=== PATIENT | male | born 1950 | race Caucasian/White ===

== ENCOUNTER → 2018-05-09 | Outpatient (CLI) | payer MEDICARE ==
[~2018-05-09] MED LIST: ARIP15TA3 PO; ASPI-496 PO; ATOR20TA PO; BUPR150T73 PO; CIPR500T87 PO; HYDR-3240 PO; METH1TAB41 PO; REGADENOSON 0.4 MG/5 ML SYRINGE ONE; SERT100T PO; TAMS-11 PO
== END | disposition home or self-care (01) ==
LOC: CFH 06:59
PROVIDERS: ATTEND Internal Medicine Cardiovascular Disease
DX: I08.3 Combined rheumatic disorders of mitral, aortic and tricuspid valves (principal); E78.5 Hyperlipidemia, unspecified
CPT/HCPCS: 78452; 93017; 93306; A9502; J2785

== ENCOUNTER 2018-08-05 22:53 | Inpatient (IN) | payer MEDICARE ==
[~2018-08-05] VITALS: Ht 188 cm; Wt 85.9 kg
[~2018-08-05 22:53] MED LIST changes: -REGADENOSON 0.4 MG/5 ML SYRINGE ONE
--- NOTE | 2018-08-05 23:01 | NUR ---
Pt presents to ed c/o n/v since 1600 this pm. Admits to eating marijuana edible approximately 2 hours prior. Denies any abd pain. Denies gi/gu symptoms. Monitoring applied. Vss. Call light within reach. Spouse at bedside.
[2018-08-05] MEDS ORDERED: ONDANSETRON 2MG/ML, 2ML ONE (23:17)
[2018-08-05] MEDS ORDERED: MORPHINE SULFATE 4 MG/ML, 1ML ONE (23:17)
[2018-08-05] MEDS ORDERED: MORPHINE SULFATE 4 MG/ML, 1ML IVPush PRN (23:30)
[2018-08-05] MEDS ORDERED: ONDANSETRON 2MG/ML, 2ML IVPush ONE (23:30)
[2018-08-05 23:41] LABS: BASOPHILS # (AUTO) 0.02 x10^3/uL (0-0.1); BASOPHILS % (AUTO) 0 % (0-1); EOSINOPHILS # (AUTO) 0.02 x10^3/uL (0-0.4); EOSINOPHILS % (AUTO) 0 % (1-7); LYMPHOCYTES # (AUTO) 1.07 x10^3/uL (1-3.4); LYMPHOCYTES % (AUTO) 13 % (22-44); MD NO; MEAN CORPUSCULAR HEMOGLOBIN 30.1 pg (27.5-34.5); MEAN CORPUSCULAR VOLUME 91.2 fL (81-97); MEAN PLATELET VOLUME 7.8 fL (7.4-10.4); MONOCYTES # (AUTO) 0.24 x10^3/uL (0.2-0.8); MONOCYTES % (AUTO) 3 % (2-9); NEUTROPHILS # (AUTO) 7.02 x10^3/uL (1.8-6.8); NEUTROPHILS % (AUTO) 84 % (42-75); PLATELET COUNT 209 x10^3/uL (130-400); RED BLOOD COUNT 5.13 x10^6/uL (4.38-5.82); RED CELL DISTRIBUTION WIDTH 13.3 % (9.4-14.8)
[2018-08-05 23:52] LABS: ALANINE AMINOTRANSFERASE 27 U/L (12-78); ALBUMIN 3.7 g/dL (3.4-5.0); ANION GAP 7 mmol/L (5-15); CALCIUM 8.5 mg/dL (8.5-10.1); CHLORIDE 111 mmol/L (98-107)
[2018-08-05 23:57] LABS: ALKALINE PHOSPHATASE 95 U/L (45-117); TOTAL PROTEIN 6.9 g/dL (6.4-8.2); TROPONIN I < 0.015 ng/mL (0.000-0.045)
--- NOTE | 2018-08-06 00:36 | NUR ---
Pt to ct.
[2018-08-06] MEDS ORDERED: OMNIPAQUE 350 MG/ML, 100ML BOTTLE ONE (00:43)
--- NOTE | 2018-08-06 01:44 | NUR ---
All results back. Pt up for recheck.
--- NOTE | 2018-08-06 01:49 | NUR ---
Pt sleeping comfortably on gurney. Rr even and unlabored. Vss.
[2018-08-06] MEDS ORDERED: PROMETHAZINE 25 MG/ML, 1ML ONE (02:14)
--- NOTE | 2018-08-06 02:23 | NUR ---
This rn to medicate pt and medicated per apr. Pt not able to ambulate w/ steady gait at this time and still dry heaving at this time.
[2018-08-06] MEDS ORDERED: PROMETHAZINE 25 MG/ML, 1ML IM ONE (02:30)
--- NOTE | 2018-08-06 03:22 | NUR ---
pt reports that his nausea is resolving however his restless leg has increased dramatically per pt and . Pt obvious discomfort, takes Requip and low dose Abilify for this problem
--- NOTE | 2018-08-06 03:45 | NUR ---
states that pt was gagging just prior to entrance to room, pt is interested in attempting po fluids at this time. Pt is shaky, states that this is not parkinsons, is usual for pt however it is worse.
--- NOTE | 2018-08-06 03:46 | NUR ---
MD notified of the current events, will go back and talk with pt and
--- NOTE | 2018-08-06 04:02 | NUR ---
Pt very unsteady, wiofe very concerned that pt will fall if she takes him home and notes that he contiues to gag. Ask pt and what they would like done, admission as pt is not improving, MD aware that they have chosen admission
--- NOTE | 2018-08-06 04:28 | NUR ---
pt resting on gurney, family at bedside, denies needs at this time, pt unable to provided urine sample at this time, monitor in place, call light within reach. awaiting room for admit
[2018-08-06] MEDS ORDERED: ROPI1TAB2 PO (05:41)
[2018-08-06] MEDS ORDERED: FINA5TAB4 PO (05:41)
[2018-08-06] MEDS ORDERED: hydrALAzine 20 MG/ML, 1ML IVPush PRN (06:30)
[2018-08-06] MEDS ORDERED: DOCUSATE 100 MG CAPSULE PO PRN (06:30)
[2018-08-06] MEDS ORDERED: PROMETHAZINE 25 MG/ML, 1ML IM PRN (06:30)
[2018-08-06] MEDS ORDERED: ACETAMINOPHEN 325 MG TABLET PO PRN (06:30)
[2018-08-06] MEDS ORDERED: BISACODYL 10 MG SUPP PR PRN (06:30)
[2018-08-06] MEDS ORDERED: morphine SULFATE 10 MG/ML, 1ML IVPush PRN (06:30)
[2018-08-06] MEDS ORDERED: OXYcodone IR 5MG TABLET PO PRN (06:30)
[2018-08-06] MEDS ORDERED: POLYETHYLENE GLYCOL 17 GM PACKET PO PRN (06:30)
[2018-08-06] MEDS ORDERED: ONDANSETRON 2MG/ML, 2ML IVPush PRN (06:30)
[2018-08-06] MEDS: SODIUM CHLORIDE 0.9% 1,000 ML IV SCH ×2 (06:44→20:49)
[2018-08-06 07:15] VITALS: BP 155/79
[2018-08-06 07:24] LABS: MICROSCOPIC AUTO
[2018-08-06 07:26] LABS: CULTURE INDICATED? NO
[2018-08-06] MEDS: HEPARIN 5,000 UNITS/ML, 1ML SQ SCH ×2 (08:00→16:00)
[2018-08-06 08:44] LABS: FREE T4 (FREE THYROXINE) 1.12 ng/dL (0.76-1.46); THYROID STIMULATING HORMONE 0.284 mIU/L (0.358-3.740)
[2018-08-06] MEDS ORDERED: PANTOPRAZOLE 40 MG IV IVPush SCH (09:00)
[2018-08-06] MEDS: TAMSULOSIN 0.4 MG CAP.ER.24H PO SCH (09:10)
[2018-08-06] MEDS: SERTRALINE 100MG TABLET PO SCH (09:10)
[2018-08-06] MEDS: ROPINIROLE 1MG TABLET PO SCH (09:10)
[2018-08-06] MEDS: FINASTERIDE 5 MG TABLET PO SCH (09:10)
[2018-08-06] MEDS: BUPROPION SR 150 MG TABLET PO SCH (09:10)
[2018-08-06 10:01] LABS: HEMOGLOBIN A1C 5.6 % (4.2-6.3)
[2018-08-06] MEDS: ONDANSETRON ODT 4 MG PO PRN ×2 (10:36→21:02)
[2018-08-06 11:50] LABS: BASOPHILS % (AUTO) 0 % (0-1); EOSINOPHILS % (AUTO) 0 % (1-7); LYMPHOCYTES # (AUTO) 1.06 x10^3/uL (1-3.4); LYMPHOCYTES % (AUTO) 9 % (22-44); MD NO; MEAN CORPUSCULAR HGB CONC 32.9 g/dL (33.2-36.2); MEAN CORPUSCULAR VOLUME 91.1 fL (81-97); MEAN PLATELET VOLUME 7.9 fL (7.4-10.4); MONOCYTES # (AUTO) 0.63 x10^3/uL (0.2-0.8); MONOCYTES % (AUTO) 6 % (2-9); NEUTROPHILS # (AUTO) 9.67 x10^3/uL (1.8-6.8); NEUTROPHILS % (AUTO) 85 % (42-75); PLATELET COUNT 225 x10^3/uL (130-400); RED BLOOD COUNT 4.98 x10^6/uL (4.38-5.82); RED CELL DISTRIBUTION WIDTH 13.4 % (9.4-14.8)
[2018-08-06 11:57] LABS: ALANINE AMINOTRANSFERASE 27 U/L (12-78); ALBUMIN 3.5 g/dL (3.4-5.0); ANION GAP 6 mmol/L (5-15); CALCIUM 8.3 mg/dL (8.5-10.1); CHLORIDE 112 mmol/L (98-107); CREATININE 1.04 mg/dL (0.7-1.3)
[2018-08-06 11:59] LABS: ALKALINE PHOSPHATASE 95 U/L (45-117); BILIRUBIN,TOTAL 1.3 mg/dL (0.2-1.0); TOTAL PROTEIN 6.6 g/dL (6.4-8.2)
[2018-08-06 14:00] VITALS: BP 131/71
[2018-08-06 18:01] LABS: CHOL/HDL RATIO 4.7; LDL/HDL RATIO 3.1 (0.5-3.0)
[2018-08-06] MEDS ORDERED: GADOBUTROL 10 MMOL/10 ML PFS ONE (18:04)
[2018-08-06 18:15] LABS: HEMOGLOBIN A1C 5.7 % (4.2-6.3)
[2018-08-06 20:07] VITALS: BP 127/73
[2018-08-06] MEDS: ATORVASTATIN 20 MG TABLET PO SCH (20:49)
[2018-08-06 23:53] VITALS: BP 135/78
[2018-08-07] MEDS: HEPARIN 5,000 UNITS/ML, 1ML SQ SCH ×4 (00:06→23:45)
[2018-08-07 02:25] VITALS: BP 123/76
[2018-08-07] MEDS: SODIUM CHLORIDE 0.9% 1,000 ML IV SCH (03:43)
[2018-08-07 04:25] VITALS: BP 127/75
[2018-08-07 04:32] LABS: BASOPHILS # (AUTO) 0.02 x10^3/uL (0-0.1); BASOPHILS % (AUTO) 0 % (0-1); EOSINOPHILS # (AUTO) 0.07 x10^3/uL (0-0.4); EOSINOPHILS % (AUTO) 1 % (1-7); LYMPHOCYTES % (AUTO) 22 % (22-44); MD NO; MEAN CORPUSCULAR HEMOGLOBIN 29.9 pg (27.5-34.5); MEAN CORPUSCULAR HGB CONC 32.4 g/dL (33.2-36.2); MEAN CORPUSCULAR VOLUME 92.2 fL (81-97); MEAN PLATELET VOLUME 8.2 fL (7.4-10.4); MONOCYTES # (AUTO) 0.55 x10^3/uL (0.2-0.8); MONOCYTES % (AUTO) 7 % (2-9); NEUTROPHILS # (AUTO) 5.33 x10^3/uL (1.8-6.8); NEUTROPHILS % (AUTO) 70 % (42-75); PLATELET COUNT 204 x10^3/uL (130-400); RED BLOOD COUNT 4.73 x10^6/uL (4.38-5.82); RED CELL DISTRIBUTION WIDTH 13.7 % (9.4-14.8)
[2018-08-07 04:41] LABS: CHLORIDE 111 mmol/L (98-107)
[2018-08-07 04:49] LABS: ALANINE AMINOTRANSFERASE 24 U/L (12-78); ALBUMIN 3.4 g/dL (3.4-5.0); ALKALINE PHOSPHATASE 79 U/L (45-117); ANION GAP 4 mmol/L (5-15); BILIRUBIN,TOTAL 1.2 mg/dL (0.2-1.0); CHOL/HDL RATIO 5.3; CHOLESTEROL, TOTAL 180 mg/dL (140-239); CREATININE 1.04 mg/dL (0.7-1.3); HDL CHOL % 19 % (26-37); HDL CHOLESTEROL (DIRECT) 34 mg/dL (40-60); LDL CHOLESTEROL,CALCULATED 117 mg/dL (54-169); LDL/HDL RATIO 3.4 (0.5-3.0); TOTAL PROTEIN 5.9 g/dL (6.4-8.2); TRIGLYCERIDES 146 mg/dL (50-200); VLDL CHOLESTEROL 29 mg/dL (0-25)
[2018-08-07 08:00] VITALS: BP 147/79
[2018-08-07] MEDS: BUPROPION SR 150 MG TABLET PO SCH (09:53)
[2018-08-07] MEDS: FINASTERIDE 5 MG TABLET PO SCH (09:53)
[2018-08-07] MEDS: PANTOPROZOLE 40MG TABLET PO SCH (09:53)
[2018-08-07] MEDS: SERTRALINE 100MG TABLET PO SCH (09:53)
[2018-08-07] MEDS: ARIPIPRAZOLE 10 MG TABLET PO SCH (09:54)
[2018-08-07] MEDS: ROPINIROLE 1MG TABLET PO SCH (09:54)
[2018-08-07] MEDS: TAMSULOSIN 0.4 MG CAP.ER.24H PO SCH (09:54)
[2018-08-07 15:59] VITALS: BP 139/87
[2018-08-07 20:11] VITALS: BP 136/82
[2018-08-07] MEDS: ATORVASTATIN 20 MG TABLET PO SCH (20:22)
[2018-08-08 00:17] VITALS: BP 119/69
[2018-08-08] MEDS: PANTOPROZOLE 40MG TABLET PO SCH (06:02)
[2018-08-08 06:51] VITALS: BP 152/76
[2018-08-08] MEDS: ROPINIROLE 1MG TABLET PO SCH (08:07)
[2018-08-08] MEDS: ARIPIPRAZOLE 10 MG TABLET PO SCH (08:08)
[2018-08-08] MEDS: BUPROPION SR 150 MG TABLET PO SCH (08:08)
[2018-08-08] MEDS: HEPARIN 5,000 UNITS/ML, 1ML SQ SCH ×3 (08:08→23:13)
[2018-08-08] MEDS: TAMSULOSIN 0.4 MG CAP.ER.24H PO SCH (08:08)
[2018-08-08] MEDS: FINASTERIDE 5 MG TABLET PO SCH (08:08)
[2018-08-08] MEDS: SERTRALINE 100MG TABLET PO SCH (08:08)
[2018-08-08] MEDS ORDERED: IRON SUCROSE COMPLEX 100MG/5ML IV ONE (09:30)
[2018-08-08 12:10] VITALS: BP 138/81
[2018-08-08 20:00] VITALS: BP 132/80
[2018-08-08] MEDS: ATORVASTATIN 20 MG TABLET PO SCH (20:31)
[2018-08-09 00:42] VITALS: BP 134/71
[2018-08-09 05:14] LABS: BASOPHILS # (AUTO) 0.03 x10^3/uL (0-0.1); BASOPHILS % (AUTO) 0 % (0-1); EOSINOPHILS # (AUTO) 0.23 x10^3/uL (0-0.4); EOSINOPHILS % (AUTO) 3 % (1-7); LYMPHOCYTES # (AUTO) 1.87 x10^3/uL (1-3.4); LYMPHOCYTES % (AUTO) 23 % (22-44); MD NO; MEAN CORPUSCULAR HEMOGLOBIN 29.8 pg (27.5-34.5); MEAN CORPUSCULAR HGB CONC 32.8 g/dL (33.2-36.2); MEAN CORPUSCULAR VOLUME 90.9 fL (81-97); MEAN PLATELET VOLUME 7.7 fL (7.4-10.4); MONOCYTES # (AUTO) 0.52 x10^3/uL (0.2-0.8); MONOCYTES % (AUTO) 7 % (2-9); NEUTROPHILS # (AUTO) 5.36 x10^3/uL (1.8-6.8); NEUTROPHILS % (AUTO) 67 % (42-75); PLATELET COUNT 186 x10^3/uL (130-400); RED BLOOD COUNT 4.78 x10^6/uL (4.38-5.82); RED CELL DISTRIBUTION WIDTH 13.4 % (9.4-14.8)
[2018-08-09 05:25] LABS: ALBUMIN 3.1 g/dL (3.4-5.0); ANION GAP 7 mmol/L (5-15); CALCIUM 7.9 mg/dL (8.5-10.1); CHLORIDE 111 mmol/L (98-107)
[2018-08-09 05:30] LABS: ALANINE AMINOTRANSFERASE 31 U/L (12-78); ALKALINE PHOSPHATASE 78 U/L (45-117); BILIRUBIN,TOTAL 1.6 mg/dL (0.2-1.0); CREATININE 0.89 mg/dL (0.7-1.3); TOTAL PROTEIN 5.8 g/dL (6.4-8.2)
[2018-08-09] MEDS: PANTOPROZOLE 40MG TABLET PO SCH (05:58)
[2018-08-09 06:49] VITALS: BP 148/88
[2018-08-09] MEDS ORDERED: POTASSIUM CHLORIDE 20 MEQ TAB.ER.PRT PO ONE ×2 (08:30→11:30)
[2018-08-09] MEDS: ROPINIROLE 1MG TABLET PO SCH (08:32)
[2018-08-09] MEDS: HEPARIN 5,000 UNITS/ML, 1ML SQ SCH (08:32)
[2018-08-09] MEDS: ARIPIPRAZOLE 10 MG TABLET PO SCH (08:33)
[2018-08-09] MEDS: SERTRALINE 100MG TABLET PO SCH (08:33)
[2018-08-09] MEDS: TAMSULOSIN 0.4 MG CAP.ER.24H PO SCH (08:33)
[2018-08-09] MEDS: BUPROPION SR 150 MG TABLET PO SCH (08:33)
[2018-08-09] MEDS: FINASTERIDE 5 MG TABLET PO SCH (09:48)
[2018-08-13] MEDS ORDERED: ASPI-515 PO (14:07)
== END 2018-08-09 11:30 | disposition home or self-care (01) | DRG 693 ==
LOC: ED 23:14 → EDIP 08-06 04:07 → 4NOR 08-06 05:43 → 4WST 08-06 18:21 → DCLOUNGE 08-09 11:20
PROVIDERS: ADMIT Internal Medicine; ATTEND Internal Medicine
DX: N20.0 Calculus of kidney (principal); I63.89 Other cerebral infarction; N39.0 Urinary tract infection, site not specified; G25.81 Restless legs syndrome; R62.7 Adult failure to thrive; K57.90 Diverticulosis of intestine, part unspecified, without perforation or abscess without bleeding; Z88.8 Allergy status to other drugs, medicaments and biological substances; E78.5 Hyperlipidemia, unspecified; F32.9 Major depressive disorder, single episode, unspecified; K21.9 Gastro-esophageal reflux disease without esophagitis; N28.1 Cyst of kidney, acquired; N40.0 Benign prostatic hyperplasia without lower urinary tract symptoms; Z79.82 Long term (current) use of aspirin; Z85.47 Personal history of malignant neoplasm of testis; R33.9 Retention of urine, unspecified
CPT/HCPCS: 36415; 70553; 74177; 76700; 80053; 80061; 81001; 82728; 83036; 83540; 83550; 83690; 83735; 84100; 84439; 84443; 84484; 85025; 93005; 93308; 93880; 96372; 96374; 96375; A9585; G0378; J1644; J1756; J2405; J2550; Q0162; Q9967; C9113; J2270; J7030

== ENCOUNTER 2019-07-24 12:17 | Outpatient (CLI) | payer MEDICARE ==
[~2019-07-24 12:17] MED LIST changes: +ASPI-515 PO; +FINA5TAB4 PO; +ROPI1TAB4 PO; +vitamin D3 PO
== END 2019-07-24 23:59 | disposition home or self-care (01) ==
LOC: RAD 12:17
PROVIDERS: ATTEND Nurse Practitioner Primary Care
DX: N20.0 Calculus of kidney (principal); N20.1 Calculus of ureter; N13.30 Unspecified hydronephrosis; M47.819 Spondylosis without myelopathy or radiculopathy, site unspecified; N40.0 Benign prostatic hyperplasia without lower urinary tract symptoms
CPT/HCPCS: 74176